=== PATIENT | male | born 1980 | race Caucasian/White ===

== ENCOUNTER 2018-06-02 06:02 | Observation (INO) | payer BC ==
[2018-06-02] VITALS (16 sets, daily range): BP systolic 100–120; BP diastolic 53–69; PULSE 55–84; RESP 14–20; Ht 182.9 cm; Wt 90.0 kg
[~2018-06-02] VITALS: Ht 182.9 cm; Wt 90.0 kg
[2018-06-02] MEDS ORDERED: POLYMYXIN/BACITRACIN 1L IRRIG ONE (06:40)
[2018-06-02] MEDS ORDERED: THROMBIN (BOVINE) 5,000 UNIT VIAL TP ONE (06:52)
[2018-06-02] MEDS ORDERED: GELATIN SIZE 100 SPONGE ONE (06:52)
[2018-06-02] MEDS ORDERED: BUPIVACAINE 0.5%/EPI (SDV) 30 ML INJ ONE (06:52)
--- NOTE | 2018-06-02 07:03 | HPN ---
Date/Time of Note Date/Time of Note DATE: 06/02/18 TIME: 07:03 Interval H&P Admission Note Pt. seen H&P reviewed: No system changes MIRIAN BALDWIN MD Jun 02, 2018 07:03
[2018-06-02] MEDS ORDERED: CLON-379 PO (07:06)
--- NOTE | 2018-06-02 07:23 | PREAC ---
Date/Time of Note Date/Time of Note DATE: 06/02/18 TIME: 07:21 Anesthesia Eval and Record Evaluation Time Pre-Procedure Interview DATE: 06/02/18 TIME: 07:21 Age 37 Sex male NPO: 8 hrs Preoperative diagnosis left sideL$_% paracentral disc herniaL5 rad Planned procedure left l4/5microdiscectomy Past Medical History Past Medical History: None Surgery & Anesthesia Issues No known issue Meds Anticoagulation: No Beta Lidia within 24 hr: No Reason Beta Lidia not given: Pt. not on B-Lidia Reported Medications Clonidine Hcl* (Clonidine Hcl*) 0.1 Mg Tab, 0.1 MG PO DAILY, TAB 06/02/18 Meds reviewed: Yes Allergies Coded Allergies: No Known Allergy (Unverified , 06/02/18) Allergies Reviewed: Yes Labs/Studies Labs Reviewed: Reviewed by anesthesiologist test: N/A Studies: ECG (n/a), CXR (nl) Pre-procedure Exam Last vitals Vital Signs Date Temp Pulse Resp B/P (MAP) Pulse Ox O2 O2 Flow FiO2 Time Delivery Rate 06/02/18 97.6 61 18 113/64 99 Room Air 07:09 (80) Airway: Adequate mouth opening Mallampati: Mallampati II Teeth: Normal Lung: Normal Heart: Normal ASA Physical Status ASA physical status: 1 Emergency: None Planned Anesthetic General/MAC: ETT Planned Pain Management Parenteral pain med Pre-operative Attestations Prior to commencing anesthesia and surgery, the patient was re-evaluated, there was verification of: *The patient's identity *The results of appropriate recent lab work and preoperative vital signs *The above evaluation not changing prior to induction *Anesthetic plan, risk benefits, alternative and complications discussed with patient/family; questions answered; patient/family understands, accepts and wishes to proceed. NELLI DAWKINS MD Jun 02, 2018 07:23
[2018-06-02] MEDS ORDERED: MIDAZOLAM 1 MG/ML 2 ML INJ ONE (07:29)
[2018-06-02] MEDS ORDERED: METOCLOPRAMIDE 10 MG INJ ONE (07:30)
[2018-06-02] MEDS ORDERED: FENTAnyl 50 MCG/ML VIAL ONE (07:31)
[2018-06-02] MEDS ORDERED: ROCURONIUM 50 MG INJ ONE (07:42)
[2018-06-02] MEDS ORDERED: CEFAZOLIN 1 GM INJ ONE (07:42)
[2018-06-02] MEDS ORDERED: SUCCINYLCHOLINE CHLORIDE 100 MG/5 ML SYG IV ONE (07:42)
[2018-06-02] MEDS ORDERED: HYDROmorphONE 2 MG/ML SYG ONE (07:42)
[2018-06-02] MEDS ORDERED: PROPOFOL 20 ML ONE (07:42)
[2018-06-02] MEDS ORDERED: LIDOCAINE 2% JELLY 5 ML ONE (07:43)
[2018-06-02] MEDS ORDERED: THROMBIN 5000 UNIT VIAL TOP ONE ×2 (08:21→09:48)
[2018-06-02] MEDS ORDERED: HEMOSTATIC MATRIX SYG ZFS ONE (08:22)
[2018-06-02] MEDS ORDERED: ONDANSETRON 4 MG INJ ONE (09:56)
[2018-06-02] MEDS ORDERED: GLYCOPYRROLATE 0.4 MG INJ ONE (09:56)
[2018-06-02] MEDS ORDERED: NEOSTIGMINE 3 MG/3 ML SYRINGE ONE (09:56)
--- NOTE | 2018-06-02 10:29 | OPR ---
Date/Time of Note Date/Time of Note DATE: 06/02/18 TIME: 10:21 Operative Report Free Text/Dictation DATE OF OPERATION: 06/02/2018 PREOPERATIVE DIAGNOSES: 1. 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 Left sided L4-5 paracentral disk herniation with L5 radiculopathy POSTOPERATIVE DIAGNOSES: 1. 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 Left sided L4-5 paracentral disk herniation with L5 radiculopathy OPERATION PERFORMED: 1. Left L4-L5 hemilaminectomy, medial facetectomy and foraminotomy 2. Left L4-5 microdiscectomy SURGEON: Mirian Baldwin MD NURSE TRANSITIONAL: Dane Alaniz MD ANESTHESIA: General endotracheal ESTIMATED BLOOD LOSS: 30 mL SURGICAL INDICATION: The patient is a 37 year-old male who presents with a history of left lower extremity pain and weakness. He was found to have stenosis and a disc herniation which correlated well with his symptoms. The patient had failed conservative treatment. Risks, benefits, and alternatives to microdiscectomy were explained to the patient and they wished to proceed. Risks explained included but were not exclusive of bleeding, infection, cauda equina syndrome, nerve injury, dural tear, iatrogenic instability, recurrent disc herniation, fracture, vascular injury, bowel injury, stroke, heart attack and pulmonary embolism. DESCRIPTION OF TECHNIQUE: The patient was identified in the preoperative area and taken to the operating room. Rapid induction of general endotracheal anesthesia was performed. The patient was given 2 g of cefazolin for prophylaxis. The patient was then placed in the prone position on the Joseluis frame on a Jaylon flat top table with all prominences well padded. The back was prepped and draped in the usual sterile manner. Using a spinal needle and intraoperative fluoroscopy, the appropriate level was clearly identified (L4- L5). The skin was injected using 0.5% Marcaine with epinephrine. Longitudinal midline incision was then created using a 10 blade. Further dissection through soft tissue was performed using electrocautery down to the spinous processes. The dissection was taken down the left side of the lamina and over the facet joint capsule. A self-retaining retractor was applied. Again, intraoperative fluoroscopy confirmed the appropriate level. The microscope was brought into use for microdissection. A portion of the caudal aspect of the cephalad lamina was resected using a high-speed bur. A series of Sirenaon rongeurs were then used to resect the left L4 lamina, a portion of the medial facet and ligamentum flavum. The dura and traversing nerve root were both directly visualized. These were retracted gently in a medial direction. Immediately, the extruded disc fragment was noted. The pseudo anulus was incised using an 11 blade. Several loose fragments of disk were removed. These were removed back to a stable portion of the disk. The disk space was further pressurized using a using normal saline through a syringe to ensure that no loose fragments remained behind. Palpation with a ball-tip probe did not reveal any further stenosis. The traversing L5 nerve root was noted to be significantly decompressed. Meticulous attention was paid towards hemostasis using FloSeal as well as Gelfoam and thrombin. Care was taken to remove all FloSeal and Gelfoam prior to wound closure. The fascia was then closed using 0 Vicryl in an interrupted fashion. Subcutaneous tissue was closed using 2-0 Vicryl in an interrupted fashion. The skin was closed using a running 4-0 Monocryl stitch. The wound was dressed using Dermabond and a 4x4 sterile gauze. The patient was returned to the supine position. He was extubated immediately postoperatively and taken to the recovery room in stable condition. COMPLICATIONS: None. Procedure Date: Jun 02, 2018 Preoperative Diagnosis 1. 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 Left sided L4-5 paracentral disk herniation with L5 radiculopathy Postoperative Diagnosis 1. 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 Left sided L4-5 paracentral disk herniation with L5 radiculopathy Operation/Procedure Performed 1. Left L4-L5 hemilaminectomy, medial facetectomy and foraminotomy 2. Left L4-5 microdiscectomy Surgeon see signature line [employer] Installer Dane Alaniz MD Anesthesia Type: general Estimated Blood Loss: 10 - 50 ml's Transfusion none Specimen L4-5 disk Grafts/Implants none Complications none Pt Condition Post Procedure: stable Disposition: PACU Procedure Description DESCRIPTION OF TECHNIQUE: The patient was identified in the preoperative area and taken to the operating room. Rapid induction of general endotracheal anesthesia was performed. The patient was given 2 g of cefazolin for pr ophylaxis. The patient was then placed in the prone position on the Joseluis frame on a Jaylon flat top table with all prominences well padded. The back was prepped and draped in the usual sterile manner. Using a spinal needle and intraoperative fluoroscopy, the appropriate level was clearly identified (L4- L5). The skin was injected using 0.5% Marcaine with epinephrine. Longitudinal midline incision was then created using a 10 blade. Further dissection through soft tissue was performed using electrocautery down to the spinous processes. The dissection was taken down the left side of the lamina and over the facet joint capsule. A self-retaining retractor was applied. Again, intraoperative fluoroscopy confirmed the appropriate level. The microscope was brought into use for microdissection. A portion of the caudal aspect of the cephalad lamina was resected using a high-speed bur. A series of Kerrison rongeurs were then used to resect the left L4 lamina, a portion of the medial facet and ligamentum flavum. The dura and traversing nerve root were both directly visualized. These were retracted gently in a medial direction. Immediately, the extruded disc fragment was noted. The pseudo anulus was incised using an 11 blade. Several loose fragments of disk were removed. These were removed back to a stable portion of the disk. The disk space was further pressurized using a using normal saline thr ough a syringe to ensure that no loose fragments remained behind. Palpation with a ball-tip probe did not reveal any further stenosis. The traversing L5 nerve root was noted to be significantly decompressed. Meticulous attention was paid towards hemostasis using FloSeal as well as Gelfoam and thrombin. Care was taken to remove all FloSeal and Gelfoam prior to wound closure. The fascia was then closed using 0 Vicryl in an interrupted fashion. Subcutaneous tissue was closed using 2-0 Vicryl in an interrupted fashion. The skin was closed using a running 4-0 Monocryl stitch. The wound was dressed using Dermabond and a 4x4 sterile gauze. The patient was returned to the supine position. He was extubated immediately postoperatively and taken to the recovery room in stable condition. COMPLICATIONS: None. MIRIAN BALDWIN MD Jun 02, 2018 10:28
[2018-06-02] MEDS ORDERED: NALOXONE (0.4 MG/ML) INJ IV PRN (10:30)
[2018-06-02] MEDS ORDERED: NACL 0.9% 3 ML SYG IV SCH (10:30)
[2018-06-02] MEDS ORDERED: PROCHLORPERAZINE 10 MG TAB PO PRN (10:30)
[2018-06-02] MEDS ORDERED: ACETAMINOPHEN 325 MG TAB PO PRN (10:30)
[2018-06-02] MEDS ORDERED: ONDANSETRON 4 MG INJ IV PRN ×2 (10:30→11:00)
[2018-06-02] MEDS ORDERED: HYDROCODONE/APAP (5/325) TAB PO PRN (10:30)
--- NOTE | 2018-06-02 10:34 | PDOCDIS ---
Discharge Instructions CONDITION [id number] Patient Condition: [id number] Good HOME CARE INSTRUCTIONS: [id number] Diet Instructions: [id number] Regular ACTIVITY: [id number] Activity Restrictions: [id number] Avoid heavy lifting Avoid Heavy Housework [id number] Bathing Restrictions: [id number] Shower FOLLOW UP/APPOINTMENTS Follow-up Plan Follow-up in 2 weeks MIRIAN BALDWIN MD Jun 02, 2018 10:34
--- NOTE | 2018-06-02 10:35 | PAC ---
Date/Time of Note Date/Time of Note DATE: 06/02/18 TIME: 10:34 Post-Anesthesia Notes Post-Anesthesia Note Last documented vital signs Vital Signs Date Temp Pulse Resp B/P (MAP) Pulse Ox O2 O2 Flow FiO2 Time Delivery Rate 06/02/18 98.8 98.8 89 18 106/59 100 RA 10:30 102 7 06/02/18 61 18 113/64 99 Room Air 07:09 (80) Activity: WNL Respiratory function: WNL Cardiovascular function: WNL Mental status: Baseline Pain reasonably controlled: Yes Hydration appropriate: Yes Nausea/Vomiting absent: Yes REJI STRICKLAND Jun 02, 2018 10:35
[2018-06-02] MEDS ORDERED: ALBUTEROL 0.083% (NEB) 2.5 MG/3 ML AMP HHN PRN (11:00)
[2018-06-02] MEDS ORDERED: HYDROmorphONE 1 MG/5 ML IV SYRINGE IV PRN ×2 (11:00)
[2018-06-02] MEDS ORDERED: MEPERIDINE 25 MG INJ IV PRN (11:00)
[2018-06-02] MEDS ORDERED: LABETALOL HCL 20MG INJ IV PRN (11:00)
[2018-06-02] MEDS ORDERED: DIPHENHYDRAMINE 50 MG INJ IV PRN (11:00)
[2018-06-02] MEDS ORDERED: FENTAnyl 50 MCG/ML VIAL IV PRN ×2 (11:00)
[2018-06-02] MEDS ORDERED: morphine (1 MG/ML) 10ML SYRINGE IV PRN ×2 (11:00)
[2018-06-02] MEDS ORDERED: OXYCODONE/ACETAMINOPHEN (5/325) TAB PO PRN ×3 (11:00→17:30)
[2018-06-02] MEDS: HYDROCODONE/APAP (5/325) TAB PO PRN ×2 (11:57→15:57)
[2018-06-02] MEDS: HYDROmorphONE 0.5 MG/0.5 ML SYG IV PRN ×3 (13:49→23:41)
[2018-06-02] MEDS ORDERED: CEFAZOLIN 1 GM/50 ML (PMX) 50 ML IVPB SCH (17:30)
[2018-06-02] MEDS: OXYCODONE/ACETAMINOPHEN (5/325) TAB PO PRN ×2 (17:54→22:09)
[2018-06-02] MEDS: CYCLOBENZAPRINE 10 MG TAB PO PRN (21:39)
[2018-06-03 00:33] VITALS: BP 126/67; PULSE 80; RESP 18
[2018-06-03] MEDS: HYDROmorphONE 0.5 MG/0.5 ML SYG IV PRN (04:06)
[2018-06-03 04:48] VITALS: BP 129/77; PULSE 81; RESP 18
[2018-06-03] MEDS: OXYCODONE/ACETAMINOPHEN (5/325) TAB PO PRN ×3 (07:16→16:40)
[2018-06-03 07:24] VITALS: BP 135/72; PULSE 78; RESP 19
[2018-06-03] MEDS ORDERED: CALCIUM CARBONATE 500 MG CHEW TAB PO PRN (11:00)
--- NOTE | 2018-06-03 13:02 | CONS ---
Consultation Date/Type/Reason Admit Date/Time Jun 02, 2018 at 10:32 Initial Consult Date Date/Time of Note DATE: 06/03/18 TIME: 13:00 24 HR Interval Summary Free Text/Dictation Patient w/ episode of urinary retention. Patient able to void after Dilaudid was dicontinued. He has been cleared by PT. Pain controlled w/ percocet. Exam/Review of Systems Exam Vitals Vital Signs Date Temp Pulse Resp B/P (MAP) Pulse Ox O2 O2 Flow FiO2 Time Delivery Rate 06/03/18 97.7 78 19 135/72 96 Room Air 07:24 (93) Intake and Output 06/02/18 06/02/18 06/03/18 1515:00 23:00 07:00 IntakeIntake Total 1990 ml 450 ml OutputOutput Total 15 ml 550 ml 1000 ml BalanceBalance 1975 ml -100 ml -1000 ml Results Results 24hrs Laboratory Tests Test 06/03/18 08:23 Lab Scanned Report REFERENCE LAB Medications Medication Current Medications Prochlorperazine (Compazine) 10 mg Q4H PRN PO NAUSEA/VOMITING; Start 06/02/18 at 10:30 Ondansetron HCl (Zofran Inj) 4 mg Q6H PRN IV NAUSEA/VOMITING; Start 06/02/18 at 10:30 Acetaminophen (Tylenol Tab) 650 mg Q4H PRN PO TEMP GREATER THAN 101F OR [place]; Start 06/02/18 at 10:30 IV Flush (NS 3 ml) 3 ml PER PROTOCOL IV ; Start 06/02/18 at 10:30 Naloxone HCl (Narcan) 0.2 mg Q2M PRN IV RR 8 BREATHS/MIN OR LESS; Start 06/02/18 at 10:30 Cyclobenzaprine HCl (Flexeril) 10 mg Q12H PRN PO MUSCLE PAIN Last administered on 06/02/18at 21:39; Admin Dose 10 MG; Start 06/02/18 at 13:30 Oxycodone/ Acetaminophen (Percocet (5/ 325)) 1 tab Q4H PRN PO PAIN LEVEL 1-5; Start 06/02/18 at 17:30 Oxycodone/ Acetaminophen (Percocet (5/ 325)) 2 tab Q4H PRN PO PAIN LEVEL 6-10 Last administered on 06/03/18at 11:59; Admin Dose 2 TAB; Start 06/02/18 at 17:30 Calcium Carbonate (Tums) 500 mg Q6H PRN PO HEARTBURN Last administered on 06/03/18at 11:21; Admin Dose 500 MG; Start 06/03/18 at 11:00 MIRIAN BALDWIN MD Jun 03, 2018 13:02
[2018-06-03] MEDS: CYCLOBENZAPRINE 10 MG TAB PO PRN (13:58)
[2018-06-03 14:15] VITALS: BP 121/68; PULSE 82; RESP 18
== END 2018-06-03 18:00 | disposition home or self-care (01) ==
LOC: SDS 06:02 → EDSTATUS 07:30 → REC 10:32 → SDS 10:32 → MS1 13:40
PROVIDERS: ADMIT Orthopaedic Surgery; ATTEND Orthopaedic Surgery
DX: M48.061 Spinal stenosis, lumbar region without neurogenic claudication (principal); M51.16 Intervertebral disc disorders with radiculopathy, lumbar region
CPT/HCPCS: 63030; 72100; 88304; 97116; 97162; 97530; G0378; J0690; J1170; J2250; J2405; J2710; J2765; J3010